=== PATIENT | female | born 1995 | race Hispanic/Latino ===

== ENCOUNTER 2017-10-14 14:09 | Outpatient (CLI) | payer OTHER ==
--- NOTE | 2017-10-14 16:17 | ULT ---
FOCUSED ULTRASOUND OF THE RIGHT NECK: DATE: 10/14/17. COMPARISON: None. HISTORY: Palpable abnormality in the right submandibular region. TECHNIQUE: Multiplanar rockwell scale sonographic imaging of the right neck in the area of palpable concern obtained . FINDINGS: Inferior to the mandible in the right aspect of the neck, there is a nonspecific oblong hypoechoic le yohana measuring 5.5 x 2.4 x 5.7 cm. It abuts the internal jugular vein and common carotid artery, whi ch are along its posterior margin. This lesion does not demonstrate internal blood flow. It may rep resent a cystic mass or a hypoechoic solid mass. A cystic mass is favored. This could potentially r epresent a plunging ranula. Alternative considerations would include partially imaged cystic low-andrew w vascular malformation, such as a venolymphatic malformation. Cystic mass emanating from submandibu lar gland may be a possibility. Recommend further assessment via CT examination of the neck with IV contrast. IMPRESSION: Incompletely assessed hypoechoic mass lesion, likely cystic in nature, in the right submandibular reg ion as detailed above. CODE T POS: JULIET
--- NOTE | 2017-10-14 16:47 | ULT ---
ULTRASOUND OBSTETRICAL COMPLETE: DATE: 10-14-17 HISTORY: 22-year-old female. Evaluate size and dates. FINDINGS: number: Smith lie: Cephalic Maternal cervix: 3.5 cm in length, closed. Placenta: Posterior and low lying, but no placenta previa. Amniotic fluid volume: Normal. WILLAM: 15.5 cm heart rate: 136 bpm The following anatomy is visualized, with no evidence of anomalies: Head, lateral ventricles, cerebellum, nose and lips, spine, upper limbs, lower limbs, four chamber he art, umbilical cord, cord insertion, stomach, kidneys, and bladder. biometry: Head circumference (HC): 19.6 cm 21 w 5 d Biparietal diameter (BPD): 5.6 cm 21 w 6 d Abdominal circumference (AC): 17.7 cm 22 w 4 d Femur length (FL): 3.9 cm 22 w 3 d Average ultrasound age (AUA): 21 w 6 d Estimated date of delivery (STEVE): 02-18-18 Last menstrual period (LMP): 18 Gestational age by LMP: 23 w 0 d Estimated weight (EFW): 503 g +/- 74 g (1 lb 2 oz, +/- 3 oz) IMPRESSION: 1. Live second trimester intrauterine gestation. 2. Estimated gestational age of 21 weeks, 6 days. 3. Cephalic lie. 4. No anatomical abnormalities. jose POS: JULIET
== END 2017-10-14 14:10 | disposition home or self-care (01) ==
LOC: SCSULT 14:09
PROVIDERS: ATTEND Family Medicine
DX: Z34.02 Encounter for supervision of normal first pregnancy, second trimester (principal); Z3A.21 21 weeks gestation of pregnancy; R22.1 Localized swelling, mass and lump, neck
CPT/HCPCS: 76536; 76805

== ENCOUNTER 2018-02-16 09:24 | Inpatient (IN) | payer OTHER ==
[2018-02-16] MEDS ORDERED: Promethazine HCl 25 MG/ML VIAL IM PRN (13:12)
[2018-02-16] MEDS ORDERED: HYDROcodone/Acetaminophen 5/325 mg Tablet PO PRN ×2 (13:12)
[2018-02-16] MEDS ORDERED: Lidocaine 1% (PF) 30 ML VIAL SC PRN (13:12)
[2018-02-16] MEDS ORDERED: Ibuprofen 800 MG TAB PO PRN (13:12)
--- NOTE | 2018-02-16 14:37 | HP ---
LOCATION: Triage bed B. CHIEF COMPLAINT: Irregular contractions at 40 weeks and 6 days. This is a patient of Dr. Valencia. HISTORY OF PRESENT ILLNESS: This is a 23-year-old , G1, P0 with an EDC of 02/10/2018, who is at 40 weeks and 6 days with irregular contractions. The patient first arrived with Dr. Ramo Hernandez on-call earlier this morning, but I was in the operating room and was unable to assess her previously. I evaluated the patient at roughly 1310 hours after she had been observed for early labor. Cervical exam upon first arrival was 3 cm dilation, 50% effacement, -1 station. Bag of water intact. Cervix was posterior. After about 2 hours of observation, Hanna (the patient's nurse) and myself rechecked her, and found her to be persistently 3 cm dilated, 50% effaced, -1 station. Cephalic presentation was confirmed on digital cervical palpation. There was no evidence of rupture of membranes or vaginal bleeding. PAST MEDICAL HISTORY: Negative. PAST SURGICAL HISTORY: Negative. ALLERGIES: NONE. OB HISTORY: She is a G1, P0. GBS is negative. PHYSICAL EXAMINATION: VITAL SIGNS: She is normotensive and afebrile, pulse is in the 70s to 80s. GENERAL: She is in no acute distress. ABDOMEN: Soft and gravid and size consistent with dates. GENITOURINARY: Visual inspection and cervical examination provides an estimated weight of approximately 6.5 pounds. Cervical examination is as above. Her pelvis is gynecoid. No external vulvar lesions and no evidence of vaginal bleeding or rupture of membranes grossly. MONITORS: On monitoring, heart tones are in the 130s to 140s and they are reactive. Baseline is 130s to 140s. Contractions are irregular on the tocodynamometer, but every 3 to 5 minutes. ASSESSMENT: This is a 23-year-old primigravida at 40 weeks and 6 days (full term) with GBS negative, in the latent phase of labor. PLAN: 1. I have discussed with the patient staying for an elective induction as ACOG does endorse suggesting a trial of induction at 41 weeks with a favorable cervix. She does have a scheduled induction scheduled for 02/18/2018, which she will be 42 weeks. I discussed with the patient induction now, expected management, as well as keeping her induction as scheduled. As the patient lives in [place], [place], which is about an hour away, the patient has decided to stay for an elective induction. 2. Dr. Daniel Valencia is aware of his patient's admission. 3. I have discussed the case with Parvin, the charge nurse on the unit, and currently, we have no labor beds that are available. There is no pressing immediate indication for induction at this time, but due to the patient's residence about an hour away and early labor, we will still keep her, but we will not be able to start the induction until later this evening when nursing staff becomes available. I have discussed this with the patient as well. There is no immediate indication that presses for immediate induction at this time, but we will keep here until space is available on L&D as she lives 1 hour away. This case is a 41 week trial of induction when Labor and Delivery has resources available. Job ID: [id number] [id number]
[2018-02-16] MEDS ORDERED: NS w/ Oxytocin 10 units 500 ML ONE (15:48)
[2018-02-16] MEDS: Butorphanol Tartrate 1 MG/ML VIAL SLOW IVP PRN ×2 (16:00→18:24)
[2018-02-16] MEDS: Lactated Ringer's 1,000 ML IV SCH ×2 (16:01→16:27)
[2018-02-16 16:02] LABS: Hemoglobin 13.1 g/dL (12.0-16.0); Mean Corpuscular HGB CONC 34.7 g/dL (32.0-36.0); Mean Corpuscular Hemoglobin 30.4 pg (27.0-31.0); Mean Corpuscular Volume 87.8 fL (78.0-98.0); Mean Platelet Volume 7.7 fL (7.4-10.4); Platelet Count 241 thou/uL (130-400); RBC Distribution Width 11.8 % (11.5-14.5); Red Blood Cell (RBC) Count 4.31 mill/uL (4.20-5.40); White Blood Cell (WBC) Count 6.5 thou/uL (4.8-10.8)
[2018-02-16 16:08] VITALS: BMI 29.2
[2018-02-16 16:47] LABS: Syphilis Antibody Nonreactive (Nonreactive); Syphilis Antibody Index 0.02 S/CO (<1.00 Non-Reactive)
[2018-02-16 16:58] LABS: HBSAg Index 0.24 S/CO (0-0.99); HIV (1/2) Antibody/Antigen Non-Reactive (NonReactive); HIV 1/2 INDEX 0.09 S/CO (<1.00); Hep B Surf Ag Non-Reactive S/CO (NonReactive)
[2018-02-16] MEDS ORDERED: NS w/ Oxytocin 10 units 500 ML IV SCH (18:00)
[2018-02-16] MEDS ORDERED: Lidocaine 1.5%/Epinephrine 1:200,000 5 ML AMPUL IJ ONE (18:04)
[2018-02-16] MEDS ORDERED: Fentanyl 4 mcg/Bup 0.1% Cadd 100 ML ONE (19:06)
[2018-02-16] MEDS: NS / Oxytocin 40 units/1000ml 1,000 ML IV PRN ×2 (21:04→23:38)
[2018-02-17] MEDS ORDERED: Bisacodyl 10 MG SUPP PR PRN (04:34)
[2018-02-17] MEDS ORDERED: HYDROcodone/Acetaminophen 5/325 mg Tablet PO PRN (04:34)
[2018-02-17] MEDS ORDERED: NS / Oxytocin 40 units/1000ml 1,000 ML IV SCH (04:34)
[2018-02-17] MEDS ORDERED: Ondansetron PF 4 MG/2 ML Vial IVP PRN (04:34)
[2018-02-17] MEDS ORDERED: diphenhydrAMINE 25 MG CAP PO PRN (04:34)
[2018-02-17] MEDS ORDERED: Milk Of Magnesia 30 ML UDCUP PO PRN (04:34)
[2018-02-17] MEDS ORDERED: Lanolin Ointment 7 GM TUBE TOP PRN (04:34)
[2018-02-17] MEDS ORDERED: Benzocaine/Menthol 20-0.5% 60 ML CAN TOP PRN (04:34)
[2018-02-17] MEDS: Ibuprofen 800 MG TAB PO SCH ×3 (04:48→21:57)
[2018-02-17] MEDS ORDERED: Bupivacaine 0.25% HCL 30 ML VIAL ONE (11:11)
[2018-02-17] MEDS: HYDROcodone/Acetaminophen 5/325 mg Tablet PO PRN ×2 (12:15→18:02)
[2018-02-17] MEDS: Prenatal Vitamin 1 TAB PO SCH (21:16)
[2018-02-17] MEDS: Docusate Calcium (SURFAK) 240 MG CAP PO SCH ×2 (21:16→21:58)
[2018-02-17] MEDS: Ferrous Sulfate 325 MG TAB PO SCH (21:16)
[2018-02-17 21:28] VITALS: TEMP 97.8
[2018-02-18] MEDS: Ibuprofen 800 MG TAB PO SCH ×2 (06:16→14:00)
[2018-02-18 06:21] LABS: Hemoglobin 12.9 g/dL (12.0-16.0); Mean Corpuscular Hemoglobin 30.5 pg (27.0-31.0); Mean Corpuscular Volume 89.5 fL (78.0-98.0); Mean Platelet Volume 7.2 fL (7.4-10.4); Platelet Count 201 thou/uL (130-400); Red Blood Cell (RBC) Count 4.23 mill/uL (4.20-5.40); White Blood Cell (WBC) Count 6.4 thou/uL (4.8-10.8)
[2018-02-18] MEDS: Ferrous Sulfate 325 MG TAB PO SCH ×2 (07:15→15:46)
[2018-02-18 08:18] VITALS: BP 99/53
[2018-02-18] MEDS: Prenatal Vitamin 1 TAB PO SCH (10:23)
[2018-02-18] MEDS: Docusate Calcium (SURFAK) 240 MG CAP PO SCH (10:24)
[2018-02-18] MEDS: HYDROcodone/Acetaminophen 5/325 mg Tablet PO PRN (15:02)
== END 2018-02-18 19:05 | disposition home or self-care (01) | DRG 807 ==
LOC: L&D/OP 09:24 → L&D 16:43 → 3SW 02-17 21:00
PROVIDERS: ADMIT Family Medicine; ATTEND Family Medicine
PROC: 10E0XZZ Delivery of Products of Conception, External Approach (ICD-10-PCS; principal; 2018-02-16)
PROC: 3E033VJ Introduction of Other Hormone into Peripheral Vein, Percutaneous Approach (ICD-10-PCS; 2018-02-16)
PROC: 10907ZC Drainage of Amniotic Fluid, Therapeutic from Products of Conception, Via Natural or Artificial Opening (ICD-10-PCS; 2018-02-16)
PROC: 0W8NXZZ Division of Female Perineum, External Approach (ICD-10-PCS; 2018-02-16)
DX: O48.0 Post-term pregnancy (principal); Z37.0 Single live birth; O70.9 Perineal laceration during delivery, unspecified; Z3A.41 41 weeks gestation of pregnancy
CPT/HCPCS: 36415; 51702; 85027; 86780; 86850; 86900; 86901; 87340; 87389; 99285; J0595; J3490; S0020